=== PATIENT | male | born 2000 | race Two or more races ===

== ENCOUNTER 2024-10-29 16:31 | Emergency (ER) | payer MEDICAID, SELFPAY ==
[2024-10-29 16:32] VITALS: BMI 24.2
[2024-10-29 16:46] VITALS: BP 107/60; PULSE 72; RESP 18; TEMP 37.2; O2SAT 96; BMI 24.2
--- NOTE | 2024-10-29 16:49 | XR_ITS ---
Examination: CT abdomen and pelvis without contrast. Coronal 3-D reconstructions. Sagittal 2-D reconstructions. Date and time of exam:October 29, 2024 1700 hours Comparison November 10, 2021 INDICATIONS: Right groin pain beginning 2 weeks ago, history kidney stones CTDI: vol (mGy): 5.4 DLP: (mGycm): 284 Technique: Axial images of the abdomen have been obtained, 3 mm slice thickness Intravenous contrast material has not been administered. Low dose protocols were performed. One or more of the following dose reduction techniques were used; automated exposure control, adjustment of the mA and/or KV according to patient size, use of iterative reconstruction technique. Findings: No focal liver or splenic lesions No pancreatic or adrenal mass 2 mm nonobstructing right renal calculus Aorta normal size No bowel obstruction No bladder mass or bladder calculi Osseous structures intact IMPRESSION: 2 mm nonobstructing right renal calculus No hydronephrosis or ureteral calculi
--- NOTE | 2024-10-29 16:50 | PD.EDRME ---
Rapid Medical Screening Exam RME Arrival date/time: 10/29/24 16:31 24-year-old male presents to the emergency department today for complaint of abdominal pain and flank pain Chief Complaint: Hip Injury/Pain Vital signs: Vital Signs Temperature 99.0 F 10/29/24 16:46 Pulse Rate 72 10/29/24 16:46 Respiratory Rate 18 10/29/24 16:46 Blood Pressure 107/60 10/29/24 16:46 Pulse Oximetry (%) 96 10/29/24 16:46 Oxygen Delivery Method Room Air 10/29/24 16:46
[2024-10-29 17:24] LABS: Basophils % (Auto) 0 % (0-2.5); Eosinophils # (Auto) 0.1 Thou/mm3 (0.0-0.5); Eosinophils % (Auto) 2 % (0-10); Hematocrit 39.1 % (41.0-53.0); Hemoglobin 13.6 g/dL (13.5-16.0); Immature Granulocytes % (Auto) 0 % (0-0); Immature Granulocytes Auto 0.02 Thou/mm3 (0.00-0.00); Lymphocytes # (Auto) 1.9 Thou/mm3 (1.0-4.8); Lymphocytes % (Auto) 39 % (10-50); Mean Corpuscular HGB Conc 34.8 g/dl (31.0-37.0); Mean Corpuscular Hemoglobin 30.6 pg (25.0-35.0); Mean Corpuscular Volume 88 fL (80-100); Monocytes % (Auto) 20 % (0-12); Neutrophils # (Auto) 1.9 Thou/mm3 (1.8-7.7); Neutrophils % (Auto) 39 % (37-80); Nucleated Red Blood Cell % 0 /100 WBC (0); Platelet Count 188 Thou/mm3 (140-440); RDW Standard Deviation 44.2 fL (35.1-43.9); Red Blood Count 4.44 Miln/mm3 (4.50-5.90)
[2024-10-29 17:47] LABS: Collection Type, Urine Clean Catch
[2024-10-29 17:51] LABS: Alanine Aminotransferase 20 U/L (10-49); Albumin, Serum 4.3 gm/dL (3.5-5.0); Albumin/Globulin Ratio 1.7 (1.2-2.2); Alkaline Phosphatase 103 U/L (46-116); Anion Gap 8 (7-16); Aspartate Amino Transferase 25 U/L (0-34); BUN/Creatinine Ratio 18 Ratio (12-20); Bilirubin,Total 0.7 mg/dL (0.3-1.2); Blood Urea Nitrogen 18 mg/dL (9-23); C-Reactive Protein < 0.5 mg/dL (0.0-0.9); Carbon Dioxide 29.9 mMol/L (20.0-31.0); Chloride 107 mMol/L (98-107); Globulin 2.6 gm/dL (2.3-3.5); Glucose 90 mg/dL (74-106); Lipase 57 U/L (12-53); Osmolality,Calculated 290 (275-295); Sodium 145 mMol/L (136-145); Total Protein 6.9 gm/dL (5.7-8.2); eGFR > 60 See Note
[2024-10-29 18:08] LABS: Bilirubin,Urine Negative (Negative); Blood,Urine Negative (Negative); Clarity,Urine Clear (Clear/Hazy); Color,Urine Lt-Yellow (Lt Yel-Yel); Culture Indicated,Urine Not Indicated; Glucose, Urine Negative (Negative); Ketones,Urine Negative (Negative); Leukocyte Esterase,Urine Negative (Negative); Nitrite,Urine Negative (Negative); PH,Urine 6.5 (5.0-7.0); Protein,Urine Negative (Neg - Trace); Specific Gravity,Urine 1.017 (1.001-1.035); Urobilinogen,Urine Negative mg/dL (0.0-1.0)
[2024-10-29 18:33] LABS: RBC,Urine 1 /hpf (0-3); Squamous Epithelial Cell,Urine 6 /hpf (0-5); WBC,Urine 2 /hpf (0-5)
--- NOTE | 2024-10-29 19:46 | PD.EDABDPN ---
ED Abdominal Pain RME/HPI General Chief Complaint: Hip Injury/Pain Stated complaint: R GROIN AREA X1 WEEK Time seen by provider: 10/29/24 19:39 Arrival date/time: 10/29/24 16:31 RME / HPI RME / HPI narrative: 24-year-old male patient with no significant medical history, came in for evaluation regarding right lower abdominal pain, right groin pain, has been ongoing for more than a week, pain is described as dull ache, severity moderate. Patient also complained of painful urination for the last 1 week it comes and goes. Patient denies any vomiting. Denies any fever. Denies any testicular pain and swelling. No medications taken prior to arrival. Related Data Home Medications ?Medication ?Instructions ?Recorded ?Confirmed acetaminophen 160 mg/5 mL oral 160 mg PO ##0 08/29/10 suspension (Children's Q-PAP) Previous Rx's ?Medication ?Instructions ?Recorded ibuprofen 600 mg tablet 600 mg PO Q8HR PRN PAIN #30 tabs 11/11/15 hydrocodone 5 mg-acetaminophen 325 1 tab PO Q8H PRN pain #14 tabs 11/10/21 mg tablet tamsulosin 0.4 mg capsule (Flomax) 0.4 mg PO QDAY #30 caps 11/10/21 ibuprofen 800 mg tablet 800 mg PO TID PRN pain #30 tabs 01/21/24 ibuprofen 800 mg tablet 800 mg PO Q8H PRN pain #30 tabs 10/29/24 polyethylene glycol 3350 17 4 g PO QDAY PRN constipation #238 10/29/24 gram/dose oral powder (Miralax) grams Allergies Allergy/AdvReac Type Severity Reaction Status Date / Time No Known Allergies Allergy Verified 10/29/24 16:35 Review of Systems Review of Systems Narrative Review of Systems: Review of system reviewed and within normal limits except mentioned in HPI ED Exam Narrative Physical exam: VITAL SIGNS: Reviewed. GENERAL APPEARANCE: Alert and interactive, follows commands, no acute distress, HEAD AND FACE: Non-traumatic. ENT: PERRL, pink conjunctivitis, eyelid no trauma, Mucous membrane moist. NECK: Supple, nontender, no nuchal rigidity. CHEST: No tenderness, no crepitus, no paradoxical movement, no retractions. LUNGS: Clear, well ventilated, symmetric, no rales, no wheezing, no ronchi, no stridor, good breath sounds bilaterally. HEART: Regular rate, regular rhythm, no murmur, no gallops. ABDOMEN: Soft, positive bowel sounds, nondistended, no guarding, nontender, no rebound, no masses, RECTAL: Deferred. GENITAL: No swelling no redness noted on the right groin no mass palpated. No testicular tenderness or swelling NEUROLOGICAL: Gross motor function intact sensory function intact, Appropriate for age. MUSCULOSKELETAL: low back nontender, full range of motion. EXTREMITIES: Nontender, full range of motion. SKIN: Color pink, dry, no rash, no lacerations, no abrasions, no contusions. LYMPHATICS: Deferred. Course Quality Measures none Orders Category Date Time Status CT abdomen pelvis wo con Stat Exams 10/29/24 16:49 Completed CBC Stat Lab 10/29/24 17:11 Completed CRP [C-Reactive Protein] Stat Lab 10/29/24 17:11 Completed Comprehensive Metabolic Panel Stat Lab 10/29/24 17:11 Completed Lipase Stat Lab 10/29/24 17:11 Completed UA, C/S IF [Urinalysis, C/S if Indicated] Stat Lab 10/29/24 17:38 Completed Vital Signs Vital signs: Vital Signs Temperature 99.0 F 10/29/24 16:46 Pulse Rate 72 10/29/24 16:46 Respiratory Rate 18 10/29/24 16:46 Blood Pressure 107/60 10/29/24 16:46 Pulse Oximetry (%) 96 10/29/24 16:46 Oxygen Delivery Method Room Air 10/29/24 16:46 Abdominal Pain MDM MDM Narrative MDM Narrative:: 24-year-old male patient with no significant medical history, came in for evaluation regarding right lower abdominal pain, right groin pain, has been ongoing for more than a week, pain is described as dull ache, severity moderate. Patient also complained of painful urination for the last 1 week it comes and goes. Patient denies any vomiting. Denies any fever. Denies any testicular pain and swelling. No medications taken prior to arrival. Patient's laboratory workup all came back normal no leukocytosis urinalysis no UTI. CT scan of the abdomen and pelvis showed 2 mm nonobstructing right renal calculus No hydronephrosis or ureteral calculi Patient data External records reviewed:: None Clinical information provided by:: patient Social determinants that could affect healthcare access:: none Patient has the following chronic illnesses:: None How is presenting disease/condition affected by chronic disease/condition?: no chronic disease Evaluation data The following diagnostics were reviewed and interpreted by me:: lab results and radiology exam(s) Lab and/or radiology exams considered but not ordered:: None Interpretation Summary: See result in [facility] Medications / Prescriptions Medications or Prescriptions considered but not ordered:: None Medication administrations:: None Consultations Consultation(s) initiated? (list below): No Diagnosis Differential diagnosis abdominal pain: abdominal pain, acute appendicitis and calculus of kidney Most likely diagnosis given after review of the tests above:: Abdominal pain Admission Indicated Admission indicated?: not indicated Admission Request Was there a request for admission?: No Disposition Plan Disposition Plan: Discharge Discharge Attestation Discharge Attestation: The patient and all family members were given an opportunity to ask questions and understood the discharge instructions. Discharge instructions specifically effects, indications for sooner follow up or return to the emergency department, and the expected course of current diagnosis. Patient condition: Stable Discharge Plan Plan Patient Disposition: HOME (Self Care) Discharge Disposition comment: Stable Prescriptions/Referrals Prescriptions/Med Rec: New ibuprofen 800 mg tablet 800 mg PO Q8H PRN (Reason: pain) Qty: 30 0RF polyethylene glycol 3350 [Miralax] 17 gram/dose powder 4 g PO QDAY PRN (Reason: constipation) Qty: 238 0RF No Action acetaminophen [Children's Q-PAP] 160 MG/5 ML suspension 160 mg PO Qty: 0 ibuprofen 600 MG tablet 600 mg PO Q8HR PRN (Reason: PAIN) Qty: 30 0RF tamsulosin [Flomax] 0.4 mg capsule 0.4 mg PO QDAY Qty: 30 0RF hydrocodone-acetaminophen 5-325 mg tablet 1 tab PO Q8H MDD 3 PRN (Reason: pain) Qty: 14 0RF ibuprofen 800 mg tablet 800 mg PO TID PRN (Reason: pain) Qty: 30 0RF Referrals: No Primary/Family,Physician [Primary Care Provider] - In 1 week Problem List Clinical Impression: Abdominal pain Patient/Caregiver Discharge Instructions Discharge Activity: activity as tolerated Education Materials: Abdominal Pain Additional Instructions: Thank you for the opportunity for serving you today. You are stable for discharged . You are advised to: Follow-up with your PCP in 1 to 2 days Return to ED for worsening of symptoms Increase oral fluids Take medication as prescribed Print Language: Portuguese Stand Alone Forms: Crystal Award Info., Patient Portal Info Letter PA/[employer] PRODUCTION ASSOCIATE Supervising Physician SIDNEY/[employer]OCIATE Supervising Physician: MD James
[2024-10-29] MEDS: IBUPROFEN TAB 400 MG TABLET 800 MG PO (20:03)
[2024-10-29] MEDS: MAGNESIUM CITRATE 300 ML BTL PO (20:03)
[2024-10-29 20:23] VITALS: RESP 18
== END 2024-10-29 20:24 | disposition home or self-care (01) ==
PROVIDERS: Nurse Practitioner Primary Care; Emergency Provider Emergency Medicine
DX: N20.0 Calculus of kidney (principal); R10.31 Right lower quadrant pain
CPT/HCPCS: 36415; 74176; 80053; 81001; 83690; 85025; 86140; 99284; A9270

== ENCOUNTER → 2025-03-31 | Outpatient (CLI) | payer MEDICAID, SELFPAY ==
--- NOTE | 2025-03-31 09:30 | XR_ITS ---
Examination: CT abdomen with intravenous contrast CT pelvis with intravenous contrast 2-D coronal reconstructions 2-D sagittal reconstructions Date and time of exam: March 31, 2025, 1004 hours, comparison October 29, 2024 INDICATIONS: Onset right lower abdominal pain beginning 1 year ago. CTDI: vol (mGy) 4.53 DLP: (mGycm) 244 Technique: Multiple axial sections of the abdomen and pelvis have been obtained. 64 slice high-resolution scanner used. 3 mm axial sections have been obtained, post intravenous injection 60 cc [id number] 2-D sagittal, coronal reconstructions obtained. Low dose protocols were performed. One or more of the following dose reduction techniques were used; automated exposure control, adjustment of the mA and/or KV according to patient size, use of iterative reconstruction technique. Findings: No visualized liver or splenic lesion No gallstones No pancreatic or adrenal mass No renal or ureteral calculi, no hydronephrosis Aorta normal size Small lymph nodes in the right lower mesentery No pericecal inflammatory change No diverticulitis No prostatomegaly Urinary bladder intact Osseous structures intact IMPRESSION: No renal or ureteral calculi, no hydronephrosis No CT findings of appendicitis or bowel obstruction
== END | disposition home or self-care (01) ==
PROVIDERS: PCP Family Medicine; Referring Provider Family Medicine; Visit Provider Family Medicine
DX: R68.81 Early satiety (principal)
CPT/HCPCS: 74177; A4649; Q9967

== ENCOUNTER → 2025-04-21 | Outpatient (CLI) | payer MEDICAID, SELFPAY ==
--- NOTE | 2025-04-21 10:33 | XR_ITS ---
EXAMINATION: Thoracic spine 3 views TECHNIQUE: AP lateral, lateral upper dorsal spine 3 views Date and time: April 21, 2025, 10:59 a.m. INDICATIONS: Back pain beginning 6 months ago. FINDINGS: Adequate bone density. No thoracic fracture. No significant arthritic change. Intact pedicles IMPRESSION: Satisfactory alignment thoracic vertebral bodies, no significant arthritic change
--- NOTE | 2025-04-21 10:33 | XR_ITS ---
Examination: Abdomen AP single view Technique: AP portable supine abdomen, single view Exam date and time: April 21, 2025, 1054 hours INDICATIONS: Abdominal pain 6 months FINDINGS: Moderate stool throughout the colon No renal or ureteral calculi Adequate bone density IMPRESSION: No renal or ureteral calculi
== END | disposition home or self-care (01) ==
PROVIDERS: PCP Family Medicine; Referring Provider Surgery; Visit Provider Podiatrist
DX: M54.6 Pain in thoracic spine (principal); R10.9 Unspecified abdominal pain
CPT/HCPCS: 72072; 74018